=== PATIENT | female | born 1985 | race Caucasian/White ===

== ENCOUNTER 2019-07-08 17:39 | Emergency (ER) | payer BC ==
[~2019-07-08] VITALS: Ht 162.6 cm; Wt 86.4 kg
[2019-07-08] MEDS ORDERED: LIDOcaine 1% 30ml preserv. free vial IJ ONE (17:50)
[2019-07-08] MEDS ORDERED: bacitracin 15gm ointment TP ONE (17:50)
[2019-07-08] MEDS ORDERED: TETanus/Pertussis (Acell)/Diphther VAC/PF (Tdap-Adult) 0.5ml syringe IM ONE (17:50)
[2019-07-08 18:30] VITALS: BP 146/89
[2019-07-08] MEDS ORDERED: CEPH250T PO (18:44)
[2019-07-08] MEDS ORDERED: ibuprofen 200mg tablet PO ONE (19:15)
[2019-07-12] MEDS ORDERED: VENL-191 PO (10:48)
== END 2019-07-08 19:58 | disposition home or self-care (01) ==
LOC: ER 17:40
DX: S61.214A Laceration without foreign body of right ring finger without damage to nail, initial encounter (principal); S61.216A Laceration without foreign body of right little finger without damage to nail, initial encounter; W26.0XXA Contact with knife, initial encounter; Y93.89 Activity, other specified; Y92.89 Other specified places as the place of occurrence of the external cause; Y99.9 Unspecified external cause status
CPT/HCPCS: 12001; 90471; 90715; 99284; J2001

== ENCOUNTER 2019-07-13 10:52 | Day surgery (SDC) | payer BC ==
[~2019-07-13] VITALS: Ht 162.6 cm; Wt 93.3 kg
[2019-07-13] VITALS (8 sets, daily range): BP systolic 137–161; BP diastolic 86–112
[~2019-07-13 10:52] MED LIST: VENL-191 PO
[2019-07-13] MEDS ORDERED: ringers solution, lacted 1,000 ML IV SCH ×2 (11:30→12:41)
[2019-07-13] MEDS ORDERED: ceFAZolin inj. 2,000 MG in dextrose 5%-water 50ml 50 ML IV ONE (11:30)
[2019-07-13] MEDS ORDERED: famotidine 20mg tablet PO ONE (11:30)
[2019-07-13] MEDS ORDERED: BUPIVAcaine/PF 2.5 mg/ml (0.25%) 30ml vial ONE (12:23)
[2019-07-13 12:31] LABS: BASOPHILS # (AUTO) 0.1 X10'3 (0-0.2); BASOPHILS % (AUTO) 0.6 % (0-1); EOSINOPHILS # (AUTO) 0.4 X10'3 (0-0.9); EOSINOPHILS % (AUTO) 3.2 % (0-6); LYMPHOCYTES # (AUTO) 3.3 X10'3 (1.1-4.8); LYMPHOCYTES % (AUTO) 28.5 % (21-51); MEAN CORPUSCULAR HEMOGLOBIN 31.3 PG (27.0-31.0); MEAN CORPUSCULAR HGB CONC 34.3 g/dL (33.0-36.5); MEAN PLATELET VOLUME 8.3 FL (7.4-10.4); MONOCYTES # (AUTO) 0.7 X10'3 (0-0.9); NEUTROPHILS # (AUTO) 7.1 X10'3 (1.8-7.7); NEUTROPHILS % (AUTO) 61.7 % (42-75); PRE OP HEMATOCRIT 42.1 % (35.0-45.0); PRE OP HEMOGLOBIN 14.5 g/dL (12.0-16.0); PRE OP PLATELET COUNT 324 X10'3 (140-440); RED BLOOD COUNT 4.63 X10'6 (4.20-5.60); RED CELL DISTRIBUTION WIDTH 12.5 % (11.5-14.5)
[2019-07-13 12:38] LABS: HCG SERUM QL NEGATIVE
[2019-07-13] MEDS ORDERED: LIDOcaine 0.5% (5mg/ml) 50ml vial ONE (12:39)
[2019-07-13] MEDS ORDERED: MIDAZolam 5mg/5ml vial ONE (12:44)
[2019-07-13] MEDS ORDERED: fentaNYL/PF 50MCG/1 ML 2ML syringe ONE (12:44)
[2019-07-13] MEDS ORDERED: fentaNYL/PF 50MCG/1 ML 2ML syringe IV PRN ×2 (12:45)
[2019-07-13] MEDS ORDERED: labetalol 20mg/4ml (5mg/ml) syringe IV PRN (12:45)
[2019-07-13] MEDS ORDERED: hydrALAZINE 20mg/ml inj. IV PRN (12:45)
[2019-07-13] MEDS ORDERED: ondansetron/PF 4mg/2ml inj IV PRN (12:45)
[2019-07-13] MEDS ORDERED: morphine 4 MG/ML inj SYRINge IV PRN ×2 (12:45)
[2019-07-13] MEDS ORDERED: ketorolac trometh. 30mg/ml inj. ONE (12:46)
[2019-07-13] MEDS ORDERED: propofol inj 20 ML IV ONE (12:46)
[2019-07-13] MEDS ORDERED: LIDOcaine 2% (20mg/ml) 5ml vial ONE (12:46)
[2019-07-13] MEDS ORDERED: labetalol 20mg/4ml (5mg/ml) syringe IV ONE ×2 (13:03→13:22)
[2019-07-13] MEDS ORDERED: diphenhydrAMINE 50 mg/ml inj ONE (13:16)
--- NOTE | 2019-07-13 13:55 | NUR ---
Received from OR via BED, accompanied by Anesthesiologist DR CONNER and report given by Anesthesiolgist. PATIENT A&OX4, DENIES PAIN, V/S WNL, NEUROVASCULAR CHECKS INTACT, SCD ON, RIGHT WRIST DRESSING/SPINT CAST CDI ELEVATED WITH ICE BAG APPLIED. 20G LUE.
--- NOTE | 2019-07-13 14:55 | NUR ---
PATIENT A&OX4, DENIES PAIN, V/S WNL, NEUROVASCULAR CHECKS INTACT, SCD OFF, RIGHT WRIST DRESSING/SPINT CAST CDI ELEVATED WITH ICE BAG APPLIED. 20G PIPPA D/C. I HAVE REVIEWED D/C INSTRUCTIONS WITH PATIENT AND FAMILY AND THEY HAVE VERBALIZED UNDERSTANDING. PATIENT D/C HOME WITH FAMILY TO TRANSPORT AND ALL BELONGINGS..
== END 2019-07-13 14:55 | disposition home or self-care (01) ==
LOC: PAS 10:52
PROVIDERS: ATTEND Orthopaedic Surgery Hand Surgery
DX: S66.126A Laceration of flexor muscle, fascia and tendon of right little finger at wrist and hand level, initial encounter (principal); S64.01XA Injury of ulnar nerve at wrist and hand level of right arm, initial encounter; F41.9 Anxiety disorder, unspecified; Z88.8 Allergy status to other drugs, medicaments and biological substances; Z79.899 Other long term (current) drug therapy; Z72.89 Other problems related to lifestyle; Z98.890 Other specified postprocedural states; X58.XXXA Exposure to other specified factors, initial encounter; Y93.D9 Activity, other involving arts and handcrafts; Y99.8 Other external cause status; Y92.89 Other specified places as the place of occurrence of the external cause
CPT/HCPCS: 26356; 36415; 64831; 82948; 84703; 85025; A6222; J0690; J1200; J1885; J2001; J2250; J2704; J3010; J3490; J7060; J7120; A4215; A4618; A7000

== ENCOUNTER 2019-11-04 22:35 | Emergency (ER) | payer BC ==
[~2019-11-04] VITALS: Ht 162.6 cm; Wt 86.4 kg
[2019-11-04] MEDS ORDERED: HYDROcodone/acetaminophen 5mg/325mg tablet PO ONE (22:50)
[2019-11-04] MEDS ORDERED: famotidine 20mg tablet PO ONE (22:50)
[2019-11-04] MEDS ORDERED: ketorolac trometh inj. 60 MG/2 ML VIAL IM ONE (22:50)
[2019-11-04] MEDS ORDERED: ondansetron 4mg rapidly disintigrating tab PO ONE (22:50)
[2019-11-04] MEDS ORDERED: mag hydrox/Alum hydrox/simeth 30ml oral suspension PO ONE (22:50)
[2019-11-04 22:56] LABS: CLARITY,URINE SLIGHTLY CLOUDY (Clear); COLOR,URINE YELLOW (Yellow); GLUCOSE, URINE NEGATIVE (Neg); KETONES,URINE NEGATIVE (Neg); LEUKOCYTE ESTERASE ,URINE NEGATIVE (Neg); NITRITES, URINE NEGATIVE (Neg); OCCULT BLOOD,URINE NEGATIVE (Neg); PROTEIN,URINE NEGATIVE (Neg); UROBILINOGEN,URINE 0.2 E.U/dL (0.2-1.0)
[2019-11-04 22:57] LABS: URINE HCG NEGATIVE (NEG)
[2019-11-04 23:02] LABS: AMORPHOUS PHOSPHATES 2+; BACTERIA,URINE FEW /HPF (Neg); RBC,URINE NONE SEEN /HPF (0-2); SQUAMOUS EPITHELIAL CELL,UR FEW /LPF (FEW); UA COLLECTION TYPE CLN CATCH MIDSTREAM; WBC,URINE NONE SEEN /HPF (0-4)
[2019-11-04 23:20] LABS: BASOPHILS # (AUTO) 0.2 X10'3 (0-0.2); BASOPHILS % (AUTO) 1.1 % (0-1); EOSINOPHILS # (AUTO) 0.3 X10'3 (0-0.9); EOSINOPHILS % (AUTO) 1.6 % (0-6); HEMATOCRIT 44.5 % (35.0-45.0); HEMOGLOBIN 15.6 g/dl (12.0-16.0); LYMPHOCYTES # (AUTO) 5.5 X10'3 (1.1-4.8); MEAN CORPUSCULAR HEMOGLOBIN 31.1 PG (27.0-31.0); MEAN CORPUSCULAR HGB CONC 35.1 g/dL (33.0-36.5); MEAN CORPUSCULAR VOLUME 88.5 FL (78-98); MEAN PLATELET VOLUME 8.3 FL (7.4-10.4); MONOCYTES % (AUTO) 5.4 % (2-12); NEUTROPHILS # (AUTO) 10.8 X10'3 (1.8-7.7); NEUTROPHILS % (AUTO) 60.9 % (42-75); PLATELET COUNT 371 X10'3 (140-440); RED BLOOD COUNT 5.02 X10'6 (4.20-5.60); RED CELL DISTRIBUTION WIDTH 12.9 % (11.5-14.5); WHITE BLOOD COUNT 17.7 X10'3 (4.5-11.0)
[2019-11-04 23:32] LABS: ALANINE AMINOTRANSFERASE 33 U/L (12-78); ALBUMIN 4.1 G/DL (3.4-5.0); ALBUMIN/GLOBULIN RATIO 1.2 (1.1-1.5); ALKALINE PHOSPHATASE 104 IU/L (46-116); ANION GAP 12 (8-16); ASPARTATE AMINO TRANSFERASE 21 U/L (10-37); BILIRUBIN,TOTAL 0.3 MG/DL (0.1-1.0); BLOOD UREA NITROGEN 9 MG/DL (7-18); BUN/CREATININE RATIO 10.5 (6.6-38.0); CHLORIDE 103 MMOL/L (99-107); CREATININE 0.86 MG/DL (0.40-0.90); GLUCOSE 108 MG/DL (70-104); LIPASE 149 U/L (73-393); POTASSIUM 3.4 MMOL/L (3.5-5.1); SODIUM 144 MMOL/L (135-145); TOTAL CARBON DIOXIDE 28.8 MMOL/L (24-32); TOTAL PROTEIN 7.6 G/DL (6.4-8.2); eGFR 76 ML/MIN
[2019-11-04] MEDS ORDERED: HYDR-3965 PO (23:45)
[2019-11-04] MEDS ORDERED: ONDA8TAB6 PO (23:45)
[2019-11-05 00:02] VITALS: BP 167/108
[2019-11-06] MEDS ORDERED: ONDA8TAB13 PO (15:56)
[2019-11-06] MEDS ORDERED: HYDR-3964 PO (15:56)
== END 2019-11-05 00:03 | disposition home or self-care (01) ==
LOC: ER 22:36
DX: K80.20 Calculus of gallbladder without cholecystitis without obstruction (principal); R10.13 Epigastric pain; Z88.1 Allergy status to other antibiotic agents
CPT/HCPCS: 36415; 76700; 80053; 81001; 81025; 83690; 85025; 96372; 99284; J1885

== ENCOUNTER 2019-11-06 10:34 | Inpatient (IN) | payer BC ==
[2019-11-06] VITALS (11 sets, daily range): BP systolic 121–174; BP diastolic 78–118
[~2019-11-06] VITALS: Ht 162.6 cm; Wt 92.2 kg
[~2019-11-06 10:34] MED LIST changes: +HYDR-3965 PO; +ONDA8TAB6 PO
[2019-11-06] MEDS ORDERED: normal saline 1000ML IV soln IV ONE (14:20)
[2019-11-06] MEDS ORDERED: morphine 4 MG/ML inj SYRINge IV PRN ×2 (14:20→20:05)
[2019-11-06] MEDS ORDERED: piperacillin/tazo 3.375gm/50ml 50 ML IV ONE (14:20)
[2019-11-06] MEDS ORDERED: normal saline 1000ML IV soln IVB ONE (14:20)
[2019-11-06] MEDS ORDERED: ondansetron/PF 4mg/2ml inj IV ONE (14:20)
[2019-11-06 14:45] LABS: BASOPHILS # (AUTO) 0.1 X10'3 (0-0.2); BASOPHILS % (AUTO) 0.7 % (0-1); EOSINOPHILS # (AUTO) 0.2 X10'3 (0-0.9); EOSINOPHILS % (AUTO) 1.1 % (0-6); HEMATOCRIT 45.9 % (35.0-45.0); HEMOGLOBIN 15.7 g/dl (12.0-16.0); LYMPHOCYTES # (AUTO) 3.1 X10'3 (1.1-4.8); LYMPHOCYTES % (AUTO) 20.8 % (21-51); MEAN CORPUSCULAR HEMOGLOBIN 30.4 PG (27.0-31.0); MEAN CORPUSCULAR HGB CONC 34.2 g/dL (33.0-36.5); MEAN CORPUSCULAR VOLUME 88.8 FL (78-98); MEAN PLATELET VOLUME 8.1 FL (7.4-10.4); MONOCYTES # (AUTO) 0.6 X10'3 (0-0.9); MONOCYTES % (AUTO) 3.9 % (2-12); NEUTROPHILS # (AUTO) 10.9 X10'3 (1.8-7.7); NEUTROPHILS % (AUTO) 73.5 % (42-75); PLATELET COUNT 367 X10'3 (140-440); RED BLOOD COUNT 5.17 X10'6 (4.20-5.60); RED CELL DISTRIBUTION WIDTH 12.8 % (11.5-14.5); WHITE BLOOD COUNT 14.8 X10'3 (4.5-11.0)
[2019-11-06 15:09] LABS: ALANINE AMINOTRANSFERASE 34 U/L (12-78); ALBUMIN 4.2 G/DL (3.4-5.0); ALBUMIN/GLOBULIN RATIO 1.2 (1.1-1.5); ALKALINE PHOSPHATASE 95 IU/L (46-116); ANION GAP 12 (8-16); ASPARTATE AMINO TRANSFERASE 19 U/L (10-37); BILIRUBIN,TOTAL 0.5 MG/DL (0.1-1.0); BLOOD UREA NITROGEN 6 MG/DL (7-18); BUN/CREATININE RATIO 8.5 (6.6-38.0); CALCIUM 9.2 MG/DL (8.5-10.1); CHLORIDE 103 MMOL/L (99-107); CREATININE 0.71 MG/DL (0.40-0.90); GLUCOSE 90 MG/DL (70-104); LIPASE 103 U/L (73-393); POTASSIUM 3.7 MMOL/L (3.5-5.1); SODIUM 142 MMOL/L (135-145); TOTAL CARBON DIOXIDE 27.5 MMOL/L (24-32); TOTAL PROTEIN 7.8 G/DL (6.4-8.2); eGFR > 90 ML/MIN
[2019-11-06 15:45] LABS: URINE HCG NEGATIVE (NEG)
[2019-11-06] MEDS ORDERED: mag hydrox/Alum hydrox/simeth 30ml oral suspension PO PRN (15:45)
[2019-11-06] MEDS ORDERED: acetaminophen 325mg tablet PO PRN (15:45)
[2019-11-06] MEDS ORDERED: ondansetron/PF 4mg/2ml inj IV PRN ×2 (15:45→20:05)
[2019-11-06] MEDS ORDERED: magnesium hydroxide 30ml (MOM) UD suspension PO PRN (15:45)
[2019-11-06] MEDS ORDERED: HYDROmorphone inj. 0.5 MG/0.5 ML DISP.SYRIN IV PRN (15:45)
[2019-11-06 15:46] LABS: CLARITY,URINE CLEAR (Clear); COLOR,URINE YELLOW (Yellow); GLUCOSE, URINE NEGATIVE (Neg); KETONES,URINE TRACE mg/dl (Neg); LEUKOCYTE ESTERASE ,URINE TRACE (Neg); NITRITES, URINE NEGATIVE (Neg); OCCULT BLOOD,URINE NEGATIVE (Neg); PROTEIN,URINE NEGATIVE (Neg); UA COLLECTION TYPE CLN CATCH MIDSTREAM; UROBILINOGEN,URINE 0.2 E.U/dL (0.2-1.0)
[2019-11-06 15:56] LABS: RBC,URINE NONE SEEN /HPF (0-2); SQUAMOUS EPITHELIAL CELL,UR MODERATE /LPF (FEW)
[2019-11-06] MEDS ORDERED: HYDR-3964 PO (15:56)
[2019-11-06] MEDS ORDERED: ONDA8TAB13 PO (15:56)
[2019-11-06 15:57] LABS: BACTERIA,URINE 2+ /HPF (Neg)
[2019-11-06 15:58] LABS: MUCUS STRANDS FEW /LPF (Neg); WBC CLUMPS,URINE FEW /HPF (NEGATIVE)
[2019-11-06] MEDS: levoFLOXACIN-Levaquin 500mg/D5 100 ML IV SCH (16:47)
[2019-11-06] MEDS: normal saline 1000ml 1,000 ML IV SCH ×2 (16:49→22:51)
--- NOTE | 2019-11-06 17:05 | NUR ---
RECEIVED REPORT FORM SHAYLA IN ER
--- NOTE | 2019-11-06 17:28 | NUR ---
PATIENT NEW TO UNIT, ORIENTED TO ROOM, CALL LIGHT IN REACH, PATIENT IN TO DISTRESS, AT BED SIDE
[2019-11-06] MEDS ORDERED: ondansetron 4mg rapidly disintigrating tab PO PRN (17:50)
[2019-11-06] MEDS ORDERED: HYDROcodone/acetaminophen 5mg/325mg tablet PO PRN ×2 (17:50→21:30)
[2019-11-06] MEDS ORDERED: ringers solution, lacted 1,000 ML IV SCH (20:03)
[2019-11-06] MEDS ORDERED: proCHLORperazine 10 MG/2 ml inj IV PRN (20:05)
[2019-11-06] MEDS ORDERED: meperidine/PF 25mg/ml syringe IV PRN ×3 (20:05)
[2019-11-06] MEDS ORDERED: morphine 2 MG/ML inj. syringe IV PRN (20:05)
--- NOTE | 2019-11-06 20:30 | NUR ---
Assuming care from Malcolm CHAVEZ. Patient current is down in surgery. Will assume care.
[2019-11-06] MEDS ORDERED: dexamethasone sod phosphate 10mg/ml inj ONE (20:33)
[2019-11-06] MEDS ORDERED: glycopyrrolate 0.2mg/ml inj ONE (20:33)
[2019-11-06] MEDS ORDERED: neostigmine methylsulfate 1 MG/ML 10ml vial ONE (20:33)
[2019-11-06] MEDS ORDERED: sevoflurane 250ml liquid IH ONE (20:33)
[2019-11-06] MEDS ORDERED: midazolam 2 mg/2 ml injection ONE (20:35)
[2019-11-06] MEDS ORDERED: fentaNYL/PF 50MCG/1 ML 2ML syringe ONE (20:35)
[2019-11-06] MEDS ORDERED: LIDOcaine 2% (20mg/ml) 5ml vial ONE (20:36)
[2019-11-06] MEDS ORDERED: propofol inj 20 ML IV ONE (20:36)
[2019-11-06] MEDS ORDERED: ondansetron/PF 4mg/2ml inj ONE (20:37)
[2019-11-06] MEDS ORDERED: acetaminophen 1,000mg/100ml IV 100 ML IV ONE (20:42)
[2019-11-06] MEDS ORDERED: LIDOcaine 1% 30ml preserv. free vial ONE (20:47)
[2019-11-06] MEDS ORDERED: BUPIVAcaine/PF 2.5 mg/ml (0.25%) 30ml vial ONE (20:47)
[2019-11-06] MEDS ORDERED: meperidine/PF 50mg/ml syringe ONE (21:03)
[2019-11-06] MEDS ORDERED: rocuronium 10mg/ml inj IV ONE (21:04)
[2019-11-06] MEDS ORDERED: labetalol 20mg/4ml (5mg/ml) syringe IV ONE (21:05)
[2019-11-06] MEDS ORDERED: HYDROcodone/acetaminophen 10/325mg tab PO PRN (21:30)
--- NOTE | 2019-11-06 21:40 | NUR ---
Received from OR via SURGICAL BED, accompanied by Anesthesiologist DR ZHAO and report given by Anesthesiolgist. PT AROUSES TO NAME CALLING PLACED ON O2 AND MONITOR, S/P LAP MAT, GENERAL ANESTH, PT HAS 4 ABD LAP SITES CDI, ABD SOFT, DENIES ANY PAIN AT THIS TIME, WILL CONT TO ASSESS.
--- NOTE | 2019-11-06 22:00 | NUR ---
Received report from recovery nurse. Will assume patient care.
--- NOTE | 2019-11-06 22:30 | NUR ---
Patient arrived to room. Sleepy. Patient complaining of some nausea. Will give compazine.
[2019-11-06] MEDS: proCHLORperazine 10 MG/2 ml inj IV PRN (22:48)
[2019-11-06] MEDS: venlafaxine 37.5mg tablet PO SCH (22:59)
[2019-11-07] VITALS (7 sets, daily range): BP systolic 124–156; BP diastolic 77–105
[2019-11-07 05:03] LABS: BASOPHILS % (AUTO) 0.1 % (0-1); EOSINOPHILS % (AUTO) 0 % (0-6); HEMATOCRIT 39.4 % (35.0-45.0); HEMOGLOBIN 13.3 g/dl (12.0-16.0); LYMPHOCYTES # (AUTO) 0.7 X10'3 (1.1-4.8); LYMPHOCYTES % (AUTO) 3.9 % (21-51); MEAN CORPUSCULAR HEMOGLOBIN 30.2 PG (27.0-31.0); MEAN CORPUSCULAR HGB CONC 33.7 g/dL (33.0-36.5); MEAN CORPUSCULAR VOLUME 89.5 FL (78-98); MEAN PLATELET VOLUME 8.5 FL (7.4-10.4); MONOCYTES # (AUTO) 0.1 X10'3 (0-0.9); MONOCYTES % (AUTO) 0.8 % (2-12); NEUTROPHILS # (AUTO) 18.1 X10'3 (1.8-7.7); NEUTROPHILS % (AUTO) 95.2 % (42-75); PLATELET COUNT 340 X10'3 (140-440); RED CELL DISTRIBUTION WIDTH 12.8 % (11.5-14.5)
[2019-11-07 05:18] LABS: ALANINE AMINOTRANSFERASE 39 U/L (12-78); ALBUMIN 3.4 G/DL (3.4-5.0); ALBUMIN/GLOBULIN RATIO 1.1 (1.1-1.5); ALKALINE PHOSPHATASE 77 IU/L (46-116); ANION GAP 9 (8-16); ASPARTATE AMINO TRANSFERASE 25 U/L (10-37); BILIRUBIN,TOTAL 0.6 MG/DL (0.1-1.0); BLOOD UREA NITROGEN 5 MG/DL (7-18); BUN/CREATININE RATIO 7.1 (6.6-38.0); CALCIUM 8.1 MG/DL (8.5-10.1); CHLORIDE 105 MMOL/L (99-107); GLUCOSE 155 MG/DL (70-104); POTASSIUM 3.9 MMOL/L (3.5-5.1); SODIUM 139 MMOL/L (135-145); TOTAL CARBON DIOXIDE 24.7 MMOL/L (24-32); TOTAL PROTEIN 6.6 G/DL (6.4-8.2); eGFR > 90 ML/MIN
--- NOTE | 2019-11-07 05:55 | NUR ---
Patient bladder scan this morning showed 900ml. Got patient up to ambulate 150ml and patient attempted to urinate in the BR. Unsuccessful. Dr. Mansfield notified and order to do x1 straight cath now. @0550 St. Cath under sterile technique, return 900ml of clear yellow urine. Patient tolerated well. BS reassess this morning-Absent. Still no gas yet. Will continue with care.
--- NOTE | 2019-11-07 06:00 | NUR ---
Patient in room [facility]. I have received report from SCOTT Eduardo and had the opportunity to ask questions and assume patient care.
--- NOTE | 2019-11-07 06:30 | NUR ---
Problems reprioritized. Patient report given, questions answered & plan of care reviewed with Aldo CHAVEZ.
[2019-11-07] MEDS: levoFLOXACIN-Levaquin 500mg/D5 100 ML IV SCH (09:44)
[2019-11-07] MEDS: normal saline 1000ml 1,000 ML IV SCH (09:45)
[2019-11-07] MEDS: proCHLORperazine 10 MG/2 ml inj IV PRN (09:56)
--- NOTE | 2019-11-07 11:32 | NUR ---
Dr. Gusman phoned and stated patient may be discharged from his standpoint.
--- NOTE | 2019-11-07 18:30 | NUR ---
Problems reprioritized. Patient report given, questions answered & plan of care reviewed with SCOTT Corona.
--- NOTE | 2019-11-07 18:39 | NUR ---
Patient in room [facility]. I have received report from SCOTT Carlson and had the opportunity to ask questions and assume patient care.
[2019-11-07] MEDS: lactobacillus rhamnosus 10,000 MMU CELLS/CAPSULE PO SCH (19:43)
[2019-11-07] MEDS: venlafaxine 37.5mg tablet PO SCH (23:00)
[2019-11-08 00:15] VITALS: BP 142/89
--- NOTE | 2019-11-08 03:30 | NUR ---
Bladder scan performed, 601 mL, post void residual of 225 mL at 0230. Encouraged pt to use toilet and ambulate. Will continue to monitor patient.
--- NOTE | 2019-11-08 04:50 | NUR ---
Pt was able to void 500 mL in hat. Bladder scan performed, 306 mL. Encouraged pt to ambulate and use toilet. Will continue to monitor patient.
[2019-11-08 05:02] LABS: BASOPHILS % (AUTO) 0.2 % (0-1); EOSINOPHILS % (AUTO) 0.1 % (0-6); HEMATOCRIT 33.7 % (35.0-45.0); HEMOGLOBIN 11.7 g/dl (12.0-16.0); LYMPHOCYTES # (AUTO) 3.4 X10'3 (1.1-4.8); LYMPHOCYTES % (AUTO) 17.5 % (21-51); MEAN CORPUSCULAR HEMOGLOBIN 31.1 PG (27.0-31.0); MEAN CORPUSCULAR HGB CONC 34.7 g/dL (33.0-36.5); MEAN CORPUSCULAR VOLUME 89.6 FL (78-98); MEAN PLATELET VOLUME 8.3 FL (7.4-10.4); MONOCYTES % (AUTO) 5.2 % (2-12); PLATELET COUNT 301 X10'3 (140-440); RED BLOOD COUNT 3.76 X10'6 (4.20-5.60); RED CELL DISTRIBUTION WIDTH 12.9 % (11.5-14.5); WHITE BLOOD COUNT 19.5 X10'3 (4.5-11.0)
[2019-11-08 05:24] LABS: ALANINE AMINOTRANSFERASE 36 U/L (12-78); ALBUMIN 3.2 G/DL (3.4-5.0); ALBUMIN/GLOBULIN RATIO 1.1 (1.1-1.5); ALKALINE PHOSPHATASE 70 IU/L (46-116); ANION GAP 8 (8-16); ASPARTATE AMINO TRANSFERASE 20 U/L (10-37); BILIRUBIN,TOTAL 0.4 MG/DL (0.1-1.0); BLOOD UREA NITROGEN 6 MG/DL (7-18); BUN/CREATININE RATIO 9.4 (6.6-38.0); CHLORIDE 108 MMOL/L (99-107); CREATININE 0.64 MG/DL (0.40-0.90); GLUCOSE 102 MG/DL (70-104); POTASSIUM 3.4 MMOL/L (3.5-5.1); SODIUM 143 MMOL/L (135-145); TOTAL CARBON DIOXIDE 26.6 MMOL/L (24-32); eGFR > 90 ML/MIN
--- NOTE | 2019-11-08 06:39 | NUR ---
Problems reprioritized. Patient report given, questions answered & plan of care reviewed with SCOTT Edmonds.
[2019-11-08 07:00] VITALS: BP 138/89
[2019-11-08] MEDS: lactobacillus rhamnosus 10,000 MMU CELLS/CAPSULE PO SCH (08:17)
[2019-11-08] MEDS ORDERED: HYDR-4383 PO (11:07)
[2019-11-08] MEDS ORDERED: LEVO500T89 PO (11:07)
[2019-11-08 11:40] VITALS: BP 148/96
--- NOTE | 2019-11-08 11:48 | NUR ---
PT DISCHARGED IN STABLE CONDITION. LEFT FACILITY IN PRIVATE VEHICLE WITH . IV DC CANULA INTACT. FOLLOW UP INSTRUCTIONS GIVEN, ALL QUESTIONS ANSWERED. ALL BELONGINGS IN HAND. Addendum: 11/08/19 at 1148 by Christianne Melendez RN Amended: Links added.
== END 2019-11-08 11:42 | disposition home or self-care (01) | DRG 418 ==
LOC: ER 10:35 → ED HOLD 15:44 → SUR 3N 17:28 → OBSVTOIN 11-07 09:00
PROVIDERS: ADMIT Family Medicine; ATTEND Family Medicine
PROC: 0FT44ZZ Resection of Gallbladder, Percutaneous Endoscopic Approach (ICD-10-PCS; principal; 2019-11-06 20:33)
DX: K80.00 Calculus of gallbladder with acute cholecystitis without obstruction (principal); N39.0 Urinary tract infection, site not specified; E66.9 Obesity, unspecified; F41.9 Anxiety disorder, unspecified; F32.9 Major depressive disorder, single episode, unspecified; Z68.34 Body mass index [BMI] 34.0-34.9, adult; Z88.8 Allergy status to other drugs, medicaments and biological substances; Z79.899 Other long term (current) drug therapy
CPT/HCPCS: Z7506; Z7508; 36415; 74176; 80053; 81001; 81025; 83605; 83690; 84145; 85025; 87040; 87081; 87088; 96365; 96375; 99285; A4215; A4618; A7000; G0378; J0131; J0780; J1100; J1170; J1956; J2001; J2175; J2250; J2270; J2405; J2543; J2704; J2710; J3010; J3490; J7030; J7120